=== PATIENT | female | born 2000 | race African-American/Black ===

== ENCOUNTER 2023-10-26 19:22 | Emergency (ER) | payer MEDICAID ==
[~2023-10-26] VITALS: Ht 152.4 cm; Wt 50.0 kg
[2023-10-26 20:07] VITALS: BP 144/78; PULSE 104; RESP 18; TEMP 98; O2SAT 100
== END 2023-10-26 22:18 | disposition left against medical advice (07) ==
LOC: ER 19:22
DX: A48.3 Toxic shock syndrome (principal); Z53.21 Procedure and treatment not carried out due to patient leaving prior to being seen by health care provider
CPT/HCPCS: 99281